=== PATIENT | male | born 1945 | race Caucasian/White ===

== ENCOUNTER 2025-04-02 10:13 | Emergency (ER) | payer OTHER, SELFPAY ==
--- OUTSIDE RECORDS SUMMARY | 2025-02-10 09:35 | XMS_ITS | Encounter Summary ---
Author Organization [employer] Address [address] [place] [address] Care Team Providers Care Emergency Room Nurse Name Role Phone Christopher Drake MD Unavailable + Jessica Huston MD Primary Care Provider [phone] Encounter Details Date Type Department Care Team (Late st Contact Info) Description 02/10/2025 9:35 AM CDT Lab [facility] [address] [place] [address] Dx: Medication monitoring encounter Social History Tobacco Use Types Packs/Day Years Used Date Smoking Tobacco: Former Cigarettes 1 20 1 08/20/1961 - 06/19/1982 Smokeless Tobacco: Never Alcohol Use Standard Drinks/Week Comments Yes 7 (1 standard drink = 0.6 oz pur e alcohol) glass of wine daily B1300 Health Literacy Answer Date Recor ded How often do you need to hav e someone help you when you read instructions, pamphlets, or other written material from your doctor or pharmacy? Never 12/01/2024 [facility] Utilities Answer Date Recorded In the past 12 months has [facility] electric, gas, oil, or water company threatened to shut off services in your home? No 12/01/2024 Humiliation, Afraid, Rape, and Kick questionnair e Answer Date Recorded Within the last year, have y ou been afraid of your partner or ex-partner? No 12/01/2024 Within the last year, have y ou been humiliated or emotionally abused in other ways by your partner or ex-partner? No Within the last year, have y ou been kicked, hit, slapped, or otherwise physically hurt by your partner or ex-partner? No 12/01/2024 Within the last year, have y ou been raped or forced to have any kind of sexual activity by your partner or ex-partner? No 12/01/2024 Social Connection and Isolation Panel [NHANES] A nswer Date Recorded In a typical week, how many times do you talk on the phone with family, friends, or neighbors? Once a week 12/02/19 How often do you get togethe r with friends or relatives? Twice a week 12/01/2024 How often do you attend chur ch or nondenominational services? 1 to 4 times per year 12/01/2024 Do you belong to any clubs o r organizations such as muslim groups, unions, fraternal or athletic groups, or school groups? No 12/01/2024 How often do you attend meet ings of the clubs or organizations you belong to? Never 12/01/2024 Are you , , di vorced, , never , or living with a partner? 12/01/2024 AUDIT-C Answer Date Recorded Q1: How often do you have a drink containing alcohol? 4 or more times a week 12/01/2024 Q2: How many drinks containi ng alcohol do you have on a typical day when you are drinking? 1 or 2 Q3: How often do you have si x or more drinks on one occasion? Never 12/01/2024 Overall Financial Resource Strain (CARDIA) Answe r Date Recorded How hard is it for you to pa y for the very basics like food, housing, medical care, and heating? Not hard at all 12/01/2024 [facility] [place] of Occupat ional Health - Occupational Stress Questionnaire Answer Date Recorded Do you feel stress - tense, restless, nervous, or anxious, or unable to sleep at night because your mind is troubled all the time - these days? Only a little 12/01/2024 Exercise Vital Sign Answer Date Recorde d On average, how many days pe r week do you engage in moderate to strenuous exercise (like a brisk walk)? 2 days 12/01/2024 On average, how many minutes do you engage in exercise at this level? 10 min 12/01/2024 Hunger Vital Sign Answer Date Recorded Within the past 12 months, y ou worried that your food would run out before you got the money to buy more. Never true 12/02/19 25 Within the past 12 months, t he food you bought just didn't last and you didn't have money to get more. Never true 12/01/2024 PRAPARE - Transportation Answer Date Re corded In the past 12 months, has l ack of transportation kept you from medical appointments or from getting medications? No 09/30 In the past 12 months, has l ack of transportation kept you from meetings, work, or from getting things needed for daily living? No 10/14/2021 Housing Stability Vital Sign Answer Bipin e Recorded In the last 12 months, was t here a time when you were not able to pay the mortgage or rent on time? No 12/01/2024 In the past 12 months, how m any times have you moved where you were living? 0 12/01/2024 At any time in the past 12 m [facility], were you homeless or living in a custodial (including now)? No 12/01/2024 Housing Stability Answer Date Recorded In the last 12 months, was t here a time when you were not able to pay the mortgage or rent on time? No 12/01/2024 Number of Places Lived in the Last Year Not on f ile 12/01/2024 Number of Places Lived in the Last Year (Outpati ent) Not on file 12/01/2024 Number of Places Lived in the Last Year (Inpatie nt) Not on file 12/01/2024 Unstable Housing in the Last Year Not on file 12/01/2024 Depression (PHQ-9) Answer Date Recorded Last PHQ-9 Score Not on file 12/01/2024 Thoughts of self harm Not at all 12/01/2024 Pediatric Housing Stability Answer Date Recorded At any time in the past 12 m [facility], were you homeless or living in a custodial (including now)? No 12/01/2024 In the past 12 months, how m any times have you moved where you were living? 0 12/01/2024 Housing Condition Worry Not on file 12/02/19 Intimate Partner Violence Answer Date R ecorded Are you in a relationship wh ere you are physically hurt, threatened and/or made to feel afraid? No 12/01/2024 Transportation Needs Answer Date Record ed In the past 12 months, has l ack of transportation kept you from medical appointments, meetings, work, or from getting medicines or things needed for daily living? No 12/01/2024 Caregiver Education and Work Answer Bipin e Recorded High School Degree Not on file 12/01/2024 How often do you need to hav e someone help you when you read instructions, pamphlets, or other written material from your doctor or pharmacy? 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 Answer Date of Assessment Author No 12/01/2024 9:09 AM Haile [email or web address] * Are you blind or do you have serious difficulty seeing, even when wearing glasses? Answer Date of Assessment Author No 12/01/2024 9:09 AM Haile [email or web address] * Do you have serious difficulty walking or climbing stairs? Answer Date of Assessment Author No 12/01/2024 9:09 AM Haile [email or web address] * Do you have difficulty dressing or bathing? Answer Date of Assessment Author No 12/01/2024 9:09 AM Haile [email or web address] * Do you have difficulty doing errands alone such as visiting a doctor's office or shopping because of a physical, mental, or emotional condition? Answer Date of Assessment Author No 12/01/2024 9:09 AM Haile [email or web address] documented as of this encounter Mental Status * Do you have trouble concentrating, remembering, or making decisions because of a physical, mental, or emotional condition? Answer Entry Date Author No 12/01/2024 9:09 AM Haile [email or web address] documented in this encounter Plan of Treatment Upcoming Encounters Date Type Department Care Team (Late st Contact Info) Description 06/02/2025 9:05 AM CORN COOKER Lab [facility] [address] [facility] [place] [address] Subj: Appointment Scheduled 06/04/2025 10:05 AM CORN COOKER Office Visit [facility] Family Medicine [address] [place] [address] Jessica Huston MD [address] [facility] [phone] Subj: Appointment Scheduled 06/10/2025 9:20 AM CORN COOKER Office Visit [facility] Rheumatology (a service of [facility]) [address] [place], [place] [id number] Theo Salinas MBBS [address] [phone] Victor Manuel Herrera DO [address] [place] [phone] Subj: Appointment Scheduled documented as of this encounter Procedures Procedure Name Priority Date/Time Associated Diagnosis Comments COMPLETE BLOOD COUNT AND DIFFERENTIAL Routine 02/10/2025 9:17 AM CDT Medication monitoring encounter Rheumatoid arthritis involving multiple sites with positive rheumatoid factor (HCC) CREATININE Routine 02/10/2025 9:17 AM CDT Medication monitoring encounter Rheumatoid arthritis involving multiple sites with positive rheumatoid factor (HCC) LIVER FUNCTION PANEL Routine 02/10/2025 9:17 AM CDT Medication monitoring encounter Rheumatoid arthritis involving multiple sites with positive rheumatoid factor (HCC) COMPLETE BLOOD COUNT AND DIFFERENTIAL Routine 02/10/2025 9:17 AM CDT Medication monitoring encounter Rheumatoid arthritis involving multiple sites with positive rheumatoid factor (HCC) documented in this encounter Results * (ABNORMAL) COMPLETE BLOOD COUNT AND DIFFERENTIAL (02/10/2025 9:17 AM CDT) Pathologist [facility] WBC Count, Corrected 6.1 3.9 - 11.9 10(3)/uL 02/10/2025 9:22 AM T [facility] RBC Count 4.84 4.08 - 5.79 10(6)/uL 02/10/2025 9:22 AM T [facility] Hemoglobin 14.7 13.1 - 17.1 g/dL 02/10/2025 9:22 AM T [facility] Hematocrit 44.6 38.7 - 51.4 % 02/10/2025 9:22 AM T [facility] MCV 92.2 82.9 - 100.6 fL 02/10/2025 9:22 AM T [facility] MCH 30.5 27.6 - 33.2 pg 02/10/2025 9:22 AM T [facility] MCHC 33.0 32.0 - 36.0 g/dL 02/10/2025 9:22 AM [facility] RDW 15.2 10.0 - 16.2 % 02/10/2025 9:22 AM T [facility] Platelets 137(L) 179 - 450 10(3)/uL 02/10/2025 9:22 AM T [facility] MPV 8.0 7.4 - 10.4 fL 02/10/2025 9:22 AM T [facility] % Neutrophils 70.4 43.0 - 80.0 % 02/10/2025 9:22 AM T [facility] % Lymphocytes 17.8 16.0 - 49.0 % 02/10/2025 9:22 AM T [facility] % Monocytes 8.4 0.0 - 10.0 % 02/10/2025 9:22 AM T [facility] % Eosinophils 2.6 0.0 - 7.0 % 02/10/2025 9:22 AM T [facility] % Basophils 0.8 0.0 - 2.0 % 02/10/2025 9:22 AM CDT [facility] Abs Neutrophils 4.3 1.6 - 8.1 10(3)/uL 02/10/2025 9:22 AM CDT [facility] Abs Lymphocytes 1.1 0.9 - 3.5 10(3)/uL 02/10/2025 9:22 AM CDT [facility] Abs Monocytes 0.5 0.0 - 1.1 10(3)/uL 02/10/2025 9:22 AM CDT [facility] Abs Eosinophils 0.2 0.0 - 0.8 10(3)/uL 02/10/2025 9:22 AM CDT [facility] Abs Basophils 0.0 0.0 - 0.2 10(3)/uL 02/10/2025 9:22 AM CDT [facility] Blood VENOUS BLOOD / Unknown Venipuncture / Unknown 02/10/2025 9:17 AM CDT 02/10/2025 9:17 AM CDT us Victor Manuel Herrera DO LAB HEMATOLOGY ORDERABLE S Final Result [facility] [address] [place] [address], * LIVER FUNCTION PANEL (02/10/2025 9:17 AM CDT) Albumin 3.9 3.4 - 4.8 g/dL 02/10/2025 11:55 AM CDT [facility] Total Protein 6.5 6.0 - 8.0 g/dL 02/10/2025 11:55 AM CDT [facility] Globulin 2.6 2.0 - 3.5 g/dL 02/10/2025 11:55 AM CDT [facility] Albumin/Globulin Ratio 1.5 1.0 - 2.0 02/10/2025 11:55 AM T [facility] Aspartate Aminotransferase (AST) 29 5 - 41 U/L 02/10/2025 11:55 AM CDT [facility] Alanine Aminotransferase (ALT) 23 8 - 45 U/L 02/10/2025 11:55 AM CDT [facility] Alkaline Phosphatase 61 50 - 136 U/L 02/10/2025 11:55 AM CDT [facility] Bilirubin, Total 0.4 0.2 - 1.2 mg/dL 02/10/2025 11:55 AM CDT [facility] Bilirubin, Indirect 0.2 0.0 - 0.7 mg/dL 02/10/2025 11:55 AM CDT [facility] Bilirubin, Direct 0.2 0.0 - 0.5 mg/dL 02/10/2025 11:55 AM CDT [facility] Blood VENOUS BLOOD / Unknown Venipuncture / Unknown 02/10/2025 9:17 AM CDT 02/10/2025 9:17 AM CDT Victor Manuel Herrera DO LAB CHEMISTRY ORDERABLES Final Result [facility] [address] [place] [address], * CREATININE (02/10/2025 9:17 AM CDT) Creatinine 1.03 0.72 - 1.25 mg/dL 02/10/2025 11:55 AM CDT [facility] eGFR >60 >=60 mL/min/1.7 3m(2) 02/10/2025 11:55 AM CDT [facility] Comment:Calculation based on the Chronic Kidney Disease Epidemiology Collaboration (CKD-EPI) equation refit without adjustment for race. eCrCl (Rx) - Adults 75.3 mL/min 02/10/2025 11:55 AM CDT [facility] Blood VENOUS BLOOD / Unknown Venipuncture / Unknown 02/10/2025 9:17 AM CDT 02/10/2025 9:17 AM CDT us Victor Manuel Herrera DO LAB CHEMISTRY ORDERABLES Final Result [facility] [address] [place] [address], documented in this encounter Visit Diagnoses Diagnosis Medication monitoring encounter Encounter for therapeutic drug monitoring Rheumatoid arthritis involving multiple sites with positive rheumatoid factor (HCC) documented in this encounter Care Teams Emergency Room Nurse Relationship Specialty Start Date End Date Jessica Huston MD [address] [place] [phone] PCP - General Family Medicine 12/01/24 Christopher Drake MD [address] [facility] [address] [place] [phone] Gastroenterology 07/10/21 documented as of this encounter Additional Source Comments PLEASE NOTE: Replies to this message will not be received.[facility] and [facility]
[2025-04-02] VITALS (15 sets, daily range): BP systolic 137–150; BP diastolic 76–95; PULSE 70–90; RESP 8–34; TEMP 36.2; O2SAT 97–100; BMI 28.7
--- NOTE | 2025-04-02 11:02 | CRLHL7_ITS ---
For Patients: As a result of the Century Cures Act, medical imaging exams and procedure reports are released immediately into your electronic medical record. You may view this report before your referring provider. If you have questions, please contact your health care provider. Indication: GI BLEED, BLOOD IN STOOL Technique: CTA abdomen/pelvis with IV contrast, utilizing 98 mL Isovue 370 Comparison: None Findings: Vasculature: No aneurysm, pseudoaneurysm, acute arterial occlusion, or rate limiting stenosis. Small focus of active arterial bleeding associated with a diverticulum of the proximal descending colon (series number 4, image 123) with some pooling of the blood on the portal venous phase (series number 10, image [id number]). Lower thorax: No acute abnormality. Large hiatal hernia containing the majority of the stomach. Abdomen/pelvis: The liver is unremarkable. Status post cholecystectomy. No biliary ductal dilatation. The spleen, pancreas, and adrenal glands are unremarkable. The kidneys are normal in size and perfused in a normal fashion. Regions of minimal cortical scarring bilaterally. Subcentimeter hypoattenuating lesions in the kidneys, too small to characterize, but likely benign. No renal calculi or hydroureteronephrosis. The decompressed bladder is unremarkable. Mild prostatomegaly. Seminal vesicles and image external genitalia are unremarkable. Large hiatal hernia. No evidence of bowel obstruction or inflammation. Active diverticular hemorrhage in the descending colon as detailed above. Extensive colonic diverticulosis. No intra-abdominal or intrapelvic free air, free fluid, or abscess. No abdominopelvic lymphadenopathy. Soft tissue/musculoskeletal: Small fat containing umbilical and bilateral inguinal hernias. No acute fracture or malalignment. Multilevel degenerative changes throughout the spine. Sclerotic lesion in the L3 vertebral body with overall benign features. Impression: 1. Small focus of active arterial bleeding associated with a diverticulum in the proximal descending colon. 2. Additional incidental findings as detailed above. Findings were discussed with Dr. Coppola at approximately 12:22 p.m. on 04/02/2025. Please note that all CT scans at this facility use dose modulation, iterative reconstruction, and/or weight-based dosing when appropriate to reduce radiation dose to as low as reasonably achievable. Dictated by Imtiaz George MD @ 04/02/2025 12:24:15 PM (Electronically Signed)
[2025-04-02 11:17] LABS: Hematocrit* 43.6 % (37.0-53.0); Hemoglobin* 14.5 gm/dL (13.5-17.5); Immature Granulocytes Abs Auto 0.01 K/uL (0.00-0.30); Immature Granulocytes Pct Auto 0.2 %; Lymphocytes Absolute Auto 1.00 K/uL (0.90-2.90); Mean Corpuscular HGB Conc 33 gm/dL (32-36); Mean Corpuscular Hemoglobin 31 pg (26-34); Mean Corpuscular Volume 92 fL (80-100); RDW Coefficient of Variation % 15.3 % (11.5-15.5); Red Blood Count* 4.73 m/uL (4.30-5.90); White Blood Count* 5.74 K/uL (4.50-11.00)
--- NOTE | 2025-04-02 11:19 | PC.NURSE ---
patient had bloody stool the size of a quarter in a hat. Shown to MD. MD did not want to do anything with the stool. This was thrown away. Patient denies dizziness
[2025-04-02 11:20] LABS: Slide Review Reflex No
--- OUTSIDE RECORDS SUMMARY | 2025-04-02 11:26 | XMS_ITS | Encounter Summary ---
Author Organization [facility] [employer] Address [address] [place] [address] Care Team Providers Care Internal Combustion Engineer Name Role Phone Christopher Drake MD Unavailable + Jessica Huston MD Primary Care Provider [phone] Reason for Visit * Reason Comments Refill Request Encounter Details Date Type Department Care Team (Late st Contact Info) Description 03/16/2025 Refill [facility] Rheumatology (a service of [facility]) [address] [place] [address] Victor Manuel Herrera DO [address] [facility] [address] [place] [phone] Dx: Rheumatoid arthritis involving multiple sites with positive rheumatoid factor (HCC) (Primary Dx) Social History Tobacco Use Types Packs/Day Years [...] from your doctor or pharmacy? Never 12/01/2024 [facility] Utilities Answer Date Recorded In the past 12 months has e electric, gas, oil, or water company threatened [...] week 12/01/2024 How often do you attend [facility] or restorationism services? 1 to 4 times per year 12/01/2024 Do you belong to any clubs o r organizations such as hindu groups, unions, fraternal or athletic groups, or [...] and heating? Not hard at all 12/01/2024 [facility] [place] of Occupat ional Health - Occupational Stress [...] any time in the past 12 m [facility], were you homeless or living in a mcc (including now)? No 12/01/2024 Housing Stability Answer [...] any time in the past 12 m [facility], were you homeless or living in a mcc (including now)? No 12/01/2024 In the past 12 months, how m any times have you moved where you were living? 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 Not on britany [...] Entry Date Author No 12/01/2024 9:09 AM CDT Elie warren [email or web address] documented in this encounter Miscellaneous Notes * Telephone Encounter - Nohemy Tai LPN - 03/16/2025 1:29 PM CDT DMARDS Medication: methotrexate 8 tabs weekly Authorizing Provider Victor Manuel Herrera, Last Refill/Ordering Date: Quantity: Number of Refills: 6-5-25 96 0 Last Office Visit with Provider 12/04/2024 Last labs WBC Count, Corrected Date Value Ref Range Status 02/10/2025 6.1 3.9 - 11.9 10(3)/uL Final Hemoglobin Date Value Ref Range Status 02/10/2025 14.7 13.1 - 17.1 g/dL Final Platelets Date Value Ref Range Status 02/10/2025 137 (L) 179 - 450 10(3)/uL Final Abs Neutrophils Date Value Ref Range Status 02/10/2025 4.3 1.6 - 8.1 10(3)/uL Final % Neutrophils Date Value Ref Range Status 02/10/2025 70.4 43.0 - 80.0 % Final Aspartate Aminotransferase (AST) Date Value Ref Range Status 02/10/2025 29 5 - 41 U/L Final Alanine Aminotransferase (ALT) Date Value Ref Range Status 02/10/2025 23 8 - 45 U/L Final Creatinine Date Value Ref Range Status 02/10/2025 1.03 0.72 - 1.25 mg/dL Final Albumin Date Value Ref Range Status 02/10/2025 3.9 3.4 - 4.8 g/dL Final Future Office Visit with Provider 06/10/2025 Quantity Approved/Denied 96+0 [facility]acy: [facility] Init[facility] Refill Protocol: Last order of INITIATE REFILL PROTOCOL was found on 12/08/2024 from [facility] on 12/08/2024 documented in this encounter Plan of Treatment Upcoming Encounters Date Type Department Care Team (Late st Contact Info) Description 06/02/2025 9:05 AM [facility] [address], [place] [address] Subj: Appointment Scheduled 06/04/2025 10:05 AM APPRENTICE PATTERN MAKER Office Visit [facility] Family Medicine [address] [place] [phone] Jessica Huston MD [address] [place] [phone] Subj: Appointment Scheduled 06/10/2025 9:20 AM APPRENTICE PATTERN MAKER Office Visit [facility] Rheumatology (a service of [facility]) [address] [place] [address] Theo Salinas MBBS [address] [phone] Victor Manuel Herrera DO [address] [phone] Subj: Appointment Scheduled documented as of this encounter Visit Diagnoses Diagnosis Rheumatoid arthritis involving multiple sites with positive rheumatoid factor (HCC)- Primary documented in this encounter Care Teams Internal Combustion Engineer Relationship Specialty Start Date End Date Jessica Huston MD [address] [place] [phone] PCP - General Family Medicine 12/01/24 Christopher Drake MD [address] [place] [phone] Gastroenterology 07/10/21 documented as of this encounter Additional Source Comments PLEASE NOTE: Replies to this message will not be received.[facility]
--- OUTSIDE RECORDS SUMMARY | 2025-04-02 11:26 | XMS_ITS | Encounter Summary ---
Author Organization [facility] [employer] [facility] Address [address] [place] [address] Care Team Providers Care Grain Unloader Machine Name Role Phone Christopher Drake MD Unavailable + Jessica Huston MD Primary Care Provider Encounter Details Date Type Department Care Team (Late st Contact Info) Description 02/15/2025 Results Follow-Up [facility] [address] [place], [place] [phone] Victor Manuel Herrera, [address] [facility] [address] [place] [address] CREATININE, LIVER FUNCTION PANEL, COMPLETE BLOOD COUNT AND DIFFERENTIAL Social History Tobacco Use Types Packs/Day Years [...] from your doctor or pharmacy? Never 12/01/2024 [facility] Utilities Answer Date Recorded In the past 12 months has th e electric, gas, oil, or water company [...] often do you attend chur ch or scientology services? 1 to 4 times per year 12/01/2024 Do you belong to any clubs o r organizations such as scientology groups, unions, fraternal or athletic groups, or [...] and heating? Not hard at all 12/01/2024 [facility] [place] [facility] - Occupational Stress [...] any time in the past 12 m [facility], were you homeless or living in a senior care (including now)? No 12/01/2024 Housing Stability Answer [...] any time in the past 12 m [facility], were you homeless or living in a senior care (including now)? 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 Answer Date of Assessment Author No 12/01/2024 9:09 AM DEBBIE warren [email or web address] * Are you blind or do you have serious difficulty seeing, even when wearing glasses? Answer Date of Assessment Author No 12/01/2024 9:09 AM DEBBIE warren [email or web address] * Do you have serious difficulty walking or climbing stairs? Answer Date of Assessment Author No 12/01/2024 9:09 AM DEBBIE warren [email or web address] * Do you have difficulty dressing or bathing? Answer Date of Assessment Author No 12/01/2024 9:09 AM DEBBIE warren [email or web address] * Do you have difficulty doing errands alone such as visiting a doctor's office or shopping because of a physical, mental, or emotional condition? Answer Date of Assessment Author No 12/01/2024 9:09 AM DEBBIE warren [email or web address] documented as of this encounter Mental Status * Do you have trouble concentrating, remembering, or making decisions because of a physical, mental, or emotional condition? Answer Entry Date Author No 12/01/2024 9:09 AM CDT Elie warren, [email or web address] documented in this encounter Plan of Treatment Upcoming Encounters Date Type Department Care Team (Late st Contact Info) Description 06/02/2025 9:05 AM FNPS Lab [facility] [address] [place] [address], [place] [address] Subj: Appointment Scheduled 06/04/2025 10:05 AM FNPS Office Visit [facility] Family Medicine [address] [place] [phone] Jessica Huston MD [address] [place] [phone] Subj: Appointment Scheduled 06/10/2025 9:20 AM FNPS Office Visit [facility] Rheumatology (a service of [facility]) [address] [place] [address] Theo Salinas MBBS [address] [phone] Victor Manuel Herrera DO [address] [phone] Subj: Appointment Scheduled documented as of this encounter Visit Diagnoses Not on filedocumented in this encounter Care Teams Grain Unloader Machine Relationship Specialty Start Date End Date Jessica Huston MD [address] [place] [phone] PCP - General Family Medicine 12/01/24 Christopher Drake MD [address] [place] [phone] Gastroenterology 07/10/21 documented as of this encounter Additional Source Comments PLEASE NOTE: Replies to this message will not be received.[facility]
--- OUTSIDE RECORDS SUMMARY | 2025-04-02 11:26 | XMS_ITS | Encounter Summary ---
Author Organization [facility] Address [address] [place] [address] Care Team Providers Care Pallet Sorter Name Role Phone Rodrigo Boswell MD Primary Care Provider [phone] Provider, No Primary Primary Care Provider Unava Santiago Avelar MD Primary Care Provider Unavail able Christopher Drake MD Unavailable + Unknown, Provider Primary Care Provider Unavaila Jessica Clements MD Primary Care Provider Encounter Details Date Type Department Care Team (Late st Contact Info) Description 03/31/2013 Historical Conversion [facility] Family Medicine [address] [place] [id number] [place] [address] [place] [phone] Social History Tobacco Use Types Packs/Day Years Used Date Smoking Tobacco: Never Assessed Sex and Gender Information Value Date Recorded Sex Assigned at Not on file Legal Sex Male 2:17 PM ASSISTANT COUNSEL Gender Identity Not on file Sexual Orientation Not on file documented as of this encounter Plan of Treatment Upcoming Encounters Date Type Department Care Team (Late Contact Info) Description 06/02/2025 9:05 AM ASSISTANT COUNSEL Lab [facility] Lab [address] [place] [phone] Subj: Appointment Scheduled 06/04/2025 10:05 AM ASSISTANT COUNSEL Office Visit [facility] Family Medicine [address] [place] [address] Jessica Huston MD [address] [facility] [phone] Subj: Appointment Scheduled 06/10/2025 9:20 AM ASSISTANT COUNSEL Office Visit [facility] Rheumatology (a service of [facility]) [address] [facility] [place] [address] Theo Salinas MBBS [address] [facility] [address] [place] [address], [place] [address] Victor Manuel Herrera DO [address] [place] [phone] Subj: Appointment Scheduled documented as of this encounter Visit Diagnoses Not on filedocumented in this encounter Care Teams Pallet Sorter Relationship Specialty Start Date End Date Rodrigo Bosewll MD [address] [place] [phone] PCP - General Family Medicine 06/19/16 09/17/17 Provider, [place] [address] PCP - General 09/18/17 10/17/17 [place] [address] PCP - General Family Medicine 10/18/17 10/05/24 Unknown, [place] [address] PCP - General 10/06/24 11/30/24 Jessica Huston MD [address] [place] [phone] PCP - General Family Medicine 12/01/24 Christopher Drake MD [address] [phone] Gastroenterology 07/10/21 documented as of this encounter Additional Source Comments PLEASE NOTE: Replies to this message will not be received.[facility]
--- OUTSIDE RECORDS SUMMARY | 2025-04-02 11:26 | XMS_ITS | Referral Summary ---
Author Organization [facility] Address [address] [place] [address] Care Team Providers Care Solar Sales Estimator Name Role Phone Christopher Drake MD Unavailable + Jessica Huston MD Primary Care Provider [phone] Encounters Date Type Department Care Team Description 03/16/2025 Refill [facility] Rheumatology (a service of [facility]) [address] [place] [address] Victor Manuel Herrera, Dx: Rheumatoid arthritis involving multiple sites with positive rheumatoid factor (HCC) (Primary Dx) 02/15/2025 Results Follow-Up [facility] [address] [place] [address] Victor Manuel Herrera DO CREATININE, LIVER FUNCTION PANEL, COMPLETE BLOOD COUNT AND DIFFERENTIAL 02/10/2025 Travel 02/10/2025 9:35 AM CDT Lab [facility] [address] [place] [address] Dx: Medication monitoring encounter from Last 3 Months Allergies No known active allergies Medications cholecalciferol 1,000 unit oral tablet Take 2 Tablets (2,000 Units) by mouth in the morning. Active Folic Acid 800 mcg oral Tablet Take 1 Tablet (800 mcg) by mouth in the morning. Active glucosamine/cho ndr virk A sod (GLUCOSAMINE-CH ONDROITIN) 750-600 mg oral Tablet Take 1 Tablet by mouth in the morning and 1 Tablet in the evening. Active amLODIPine (NORVASC) 2.5 mg oral TabletIndicatio ns:Essential hypertension Take 1 Tablet (2.5 mg) by mouth in the morning. 90 Tablet 1 12/02/19 25 025 Active betamethasone, augmented (DIPROLENE-AF) 0.05 % topical OintmentIndicat ions:Eczema, unspecified type Apply 1 Application to the affected area(s) 2 times daily as needed in the morning and early afternoon for rash. 45 g 5 12/02/19 25 Active triamcinolone acetonide (KENALOG) 0.1 % topical OintmentIndicat ions:Eczema, unspecified type Apply 1 Application to the affected area(s) in the morning and 1 Application in the evening. 80 g 1 12/02/19 25 Active methotrexate 2.5 mg oral TabletIndicatio ns:Rheumatoid arthritis involving multiple sites with positive rheumatoid factor (HCC) Take 8 Tablets (20 mg) by mouth every week. 96 Tablet 03/16/20 25 Active methotrexate 2.5 mg oral TabletIndicatio ns:Rheumatoid arthritis involving multiple sites with positive rheumatoid factor (HCC) Take 8 Tablets (20 mg) by mouth every week. 96 Tablet 12/05/19 25 025 Discontinued Active Problems Problem Noted Date Diagnosed Date Eczema 12/01/2024 Medication monitoring encounter 12/07/2022 Hx of adenomatous colonic polyps 12/07/2021 Overview (12/07/2021): October 2021 - 1 adenoma removed, repeat scope recommended in 2026 Hematochezia 07/07/2021 Primary osteoarthritis involving multiple joints 09/30/2018 Primary osteoarthritis of right knee 12/07/2017 Onychomycosis of toenail 05/31/2017 Bunion of great toe of right foot 05/31/2017 Bunion of great toe of left foot 05/31/2017 Rheumatoid arthritis involvi ng multiple sites with positive rheumatoid factor 07/18/2016 High risk medications (not anticoagulants) long- term use 07/18/2016 Deficiency anemia 07/20/2014 Lipoma 12/01/2011 Pain in joint, lower leg 12/01/2011 GERD (gastroesophageal reflux disease) Overview (08/30/2018): with esophagitis and hiatal hernia Essential hypertension Resolved Problems Problem Noted Date Diagnosed Date Resolved Date Cholecystitis, acute 03/03/2020 023 Immunizations Immunization Administration Dates Next Due Influenza Vac, IM, Quadrivalent 04/08/2015,04/13,03/31/2013 Influenza Vac, IM, Quadrival ent (aIIV4), Inactivated, Adjuvanted, Preserv Free (65+ Yrs) 06/05/2023,05/04/2022,04/18/2021 Influenza Vac, IM, Quadrival ent Preserv Free, (>6 months) 04/19/2020 Influenza Vac, IM, Quadrival ent, Preserv Free, Split Virus (Fluzone 65+) 05/02/2019,03/27/2018,04/17/2017,2015 Influenza Vac, IM, Trivalent,Inactivated, Subunit, Adjuvanted (Fluad) 04/29/2024 Pneumococcal Conj Vac, 13-va lent (Prevnar) 04/08/2015,12/08/2011 Pneumococcal Vac, 23-valent, IM-SQ (Pneumovax) 08/30/2018,12/08/2011 Respiratory Syncytial Virus Vaccine, IM (Arexvy) 05/22/2024 SARS-COV-2, IM (COVID-19)(Pfizer)(Skinner Label) 10/14/2021 SARS-CoV-2, IM (COVID-19)(Pfizer)(Purple Label) 03/22/2021,09/15/2020,08/25/2020 Td, Tetanus-Diphtheria(Prese rv Free,>7yrs)(Tenivac)(Decavac) 11/04/1996 Td, Tetanus/Diphtheria, IM, >7 Yrs 05/19/2016 Tdap Vaccine, IM, (Adacel)(Boostrix) 05/23/2016, 05/19/2016,05/08/2008 Varicella Vaccine, IM (Shingrix) 07/19/2023,04/01 Social History Tobacco Use Types Packs/Day Years [...] from your doctor or pharmacy? Never 12/01/2024 [facility] Utilities Answer Date Recorded In the past 12 months has th e School Yourself, gas, oil, or water company threatened to [...] 12/01/2024 How often do you attend chur or anabaptist services? 1 to 4 times per year 12/01/2024 Do you belong to any clubs o r organizations such as bahai groups, unions, fraternal or athletic groups, or [...] and heating? Not hard at all 12/01/2024 [facility] Occupational Stress Questionnaire Answer Date [...] any time in the past 12 m [facility], were you homeless or living in a assisted (including now)? No 12/01/2024 Housing Stability Answer [...] any time in the past 12 m [facility], were you homeless or living in a assisted (including now)? 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 Answer Date of Assessment Author No 12/01/2024 9:09 AM CDT Elie warren, [email or web address] * Are you blind or do you have serious difficulty seeing, even when wearing glasses? Answer Date of Assessment Author No 12/01/2024 9:09 AM CDT Welkrishnata kelvin, [email or web address] * Do you have serious difficulty walking or climbing stairs? Answer Date of Assessment Author No 12/01/2024 9:09 AM CDT Welcometa kelvin, [email or web address] * Do you have difficulty dressing or bathing? Answer Date of Assessment Author No 12/01/2024 9:09 AM CDT Welkrishnata kelvin, [email or web address] * Do you have difficulty doing errands alone such as visiting a doctor's office or shopping because of a physical, mental, or emotional condition? Answer Date of Assessment Author No 12/01/2024 9:09 AM CDT Elie warren [email or web address] Mental Status * Do you have trouble concentrating, remembering, or making decisions because of a physical, mental, or emotional condition? Answer Entry Date Author No 12/01/2024 9:09 AM DEBBIE warren [email or web address] Plan of Treatment Upcoming Encounters Date Type Department Care Team (Late st Contact Info) Description 06/02/2025 9:05 AM LUMBER TALLIER Lab [facility] [address] [place] [address] Subj: Appointment Scheduled 06/04/2025 10:05 AM LUMBER TALLIER Office Visit [facility] Family Medicine [address], [place] [address] Jessica Huston MD [address] [place] [phone] Subj: Appointment Scheduled 06/10/2025 9:20 AM LUMBER TALLIER Office Visit [facility] Rheumatology (a service of [facility]) [address] [place] [address] AkkarTheo Mccullough MBBS [address] [place] [address] Victor Manuel Herrera DO [address] [place] [phone] Subj: Appointment Scheduled Medical Devices Implanted Type Area Supervisor Kosher Dietary Service Device Identifier Shelf Expiration Date Model / Serial / Lot Cement Tobramycin 6197-9-001 - [id number] Implanted:Qty: 2 on 12/07/2017 by Chang Elias MD at [facility] Cement Right: Knee Magy 01/29/2019 6197-9-010 / N/A / [id number] Triathlon Cr Femur Size 6 Rig - [id number] Implanted:Qty: 1 on 12/07/2017 by Chang Elias MD at [facility] Hardware Right: Knee Magy 08/15/2022 5510-F-602 / N/A / [id number] Insert Tibial X3 Triathlon Cr #6 9mm - [id number] Implanted:Qty: 1 on 12/07/2017 by Chang Elias MD at [facility] Hardware Right: Knee Magy 08/14/2022 5530-G-609 / N/A / [id number] Patella Triathlon Asymmetric X3 35x10 - [id number] Implanted:Qty: 1 on 12/07/2017 by Chang Elias MD at [facility] Hardware Right: Knee Magy 10/19/2022 5551-G-350 / N/A / [id number] Implant Ts Tria Baseplate Size - [id number] Implanted:Qty: 1 on 12/07/2017 by Chang Elias MD at [facility] Plate Right: Knee Magy 11/05/2022 5521-B-600 / N/A / [id number] Procedures Procedure Name Priority Date/Time Associated Diagnosis [...] multiple sites with positive rheumatoid factor (HCC) LIPID PANEL Routine 12/01/2024 10:25 AM CDT Screening for lipid disorders COLONOSCOPY Routine 11/21/2021 9:24 AM CDT HEPATITIS C AB Routine 07/18/2016 11:00 AM LUMBER TALLIER Rheumatoid arthritis involving multiple sites with positive rheumatoid factor (HCC) BLOOD, OCCULT, BY FECAL HEMOGLOBIN IMMUNOASSAY 07/23/2014 12:00 AM LUMBER TALLIER from Last 3 Months or Most Recently Relevant to Health Maintenance Results * (ABNORMAL) COMPLETE BLOOD COUNT AND DIFFERENTIAL (02/10/2025 9:17 AM CDT) [facility] WBC Count, Corrected 6.1 3.9 - 11.9 10(3)/uL 02/10/2025 9:22 AM CDT [facility] RBC Count 4.84 4.08 - 5.79 10(6)/uL 02/10/2025 9:22 AM CDT [facility] Hemoglobin 14.7 13.1 - 17.1 g/dL 02/10/2025 9:22 AM CDT [facility] Hematocrit 44.6 38.7 - 51.4 % 02/10/2025 9:22 AM CDT [facility] MCV 92.2 82.9 - 100.6 fL 02/10/2025 9:22 AM CDT [facility] MCH 30.5 27.6 - 33.2 pg 02/10/2025 9:22 AM T [facility] MCHC 33.0 32.0 - 36.0 g/dL 02/10/2025 9:22 AM T [facility] RDW 15.2 10.0 - 16.2 % 02/10/2025 9:22 AM T [facility] Platelets 137(L) 179 - 450 10(3)/uL 02/10/2025 9:22 AM T [facility] MPV 8.0 7.4 - 10.4 fL 02/10/2025 9:22 AM T [facility] % Neutrophils 70.4 43.0 - 80.0 % 02/10/2025 9:22 AM T [facility] % Lymphocytes 17.8 16.0 - 49.0 % 02/10/2025 9:22 AM T [facility] % Monocytes 8.4 0.0 - 10.0 % 02/10/2025 9:22 AM T [facility] % Eosinophils 2.6 0.0 - 7.0 % 02/10/2025 9:22 AM T [facility] % Basophils 0.8 0.0 - 2.0 % 02/10/2025 9:22 AM T [facility] Abs Neutrophils 4.3 1.6 - 8.1 10(3)/uL 02/10/2025 9:22 AM CDT [facility] Abs Lymphocytes 1.1 0.9 - 3.5 10(3)/uL 02/10/2025 9:22 AM CDT [facility] Abs Monocytes 0.5 0.0 - 1.1 10(3)/uL 02/10/2025 9:22 AM CDT [facility] Abs Eosinophils 0.2 0.0 - 0.8 10(3)/uL 02/10/2025 9:22 AM CDT [facility] Abs Basophils 0.0 0.0 - 0.2 10(3)/uL 02/10/2025 9:22 AM CDT [facility] Blood VENOUS BLOOD / Unknown Venipuncture / Unknown 02/10/2025 9:17 AM CDT 02/10/2025 9:17 AM CDT Victor Manuel Herrera DO LAB HEMATOLOGY ORDERABLE S Final Result [facility] [address] [place] [address], [place] [phone] * CREATININE (02/10/2025 9:17 AM CDT) Creatinine 1.03 0.72 - 1.25 mg/dL 02/10/2025 11:55 AM CDT [facility] eGFR >60 >=60 mL/min/1.7 3m(2) 02/10/2025 11:55 AM CDT [facility] Comment:Calculation based on the Chronic Kidney Disease Epidemiology Collaboration (CKD-EPI) equation refit without adjustment for race. eCrCl (Rx) - Adults 75.3 mL/min 02/10/2025 11:55 AM CDT [facility] Blood VENOUS BLOOD / Unknown Venipuncture / Unknown 02/10/2025 9:17 AM CDT 02/10/2025 9:17 AM CDT Victor Manuel Herrera DO LAB CHEMISTRY ORDERABLES Final Result [facility] [address] [place] [address], [place] [phone] * LIVER FUNCTION PANEL (02/10/2025 9:17 AM CDT) Albumin 3.9 3.4 - 4.8 g/dL 02/10/2025 11:55 AM CDT [facility] Total Protein 6.5 6.0 - 8.0 g/dL 02/10/2025 11:55 AM CDT [facility] Globulin 2.6 2.0 - 3.5 g/dL 02/10/2025 11:55 AM T [facility] Albumin/Globulin Ratio 1.5 1.0 - 2.0 02/10/2025 11:55 AM [facility] Aspartate Aminotransferase (AST) 29 5 - 41 U/L 02/10/2025 11:55 AM [facility] Alanine Aminotransferase (ALT) 23 8 - 45 U/L 02/10/2025 11:55 AM T [facility] Alkaline Phosphatase 61 50 - 136 U/L 02/10/2025 11:55 AM T [facility] Bilirubin, Total 0.4 0.2 - 1.2 mg/dL 02/10/2025 11:55 AM T [facility] Bilirubin, Indirect 0.2 0.0 - 0.7 mg/dL 02/10/2025 11:55 AM [facility] Bilirubin, Direct 0.2 0.0 - 0.5 mg/dL 02/10/2025 11:55 AM [facility] Blood VENOUS BLOOD / Unknown Venipuncture / Unknown 02/10/2025 9:17 AM CDT 02/10/2025 9:17 AM CDT us Victor Manuel Herrera DO LAB CHEMISTRY ORDERABLES Final Result [facility] [address] [place] [address], * LIPID PANEL (12/01/2024 10:25 AM CDT) Cholesterol 171 <200 mg/dL 12/01/2024 12:25 PM T [facility] Comment: ATP III Guidelines(Cholesterol, Total) Optimal: <200 mg/dL Borderline High: 200-239 mg/dL High: >239 mg/dL Triglycerides 102 30 - 150 mg/dL 12/01/2024 12:25 PM T [facility] Cholesterol, LDL (Calculated) 101 0 - 159 mg/dL 12/01/2024 12:25 PM CDT [facility] Cholesterol, HDL 50 >40 mg/dL 12/02/19 25 12:25 PM CDT [facility] Cholesterol, vLDL 20 mg/dL 025 12:25 PM CDT [facility] Fasting Status N/A 12/01/2024 12:25 PM CDT [facility] Blood VENOUS BLOOD / Unknown Venipuncture / Unknown 12/01/2024 10:25 AM CDT 12/01/2024 10:25 AM CDT us Jessica Huston MD LAB CHEMISTRY ORDERABLES Fi nal Result [facility] [address] [place] [address], * COLONOSCOPY (11/21/2021 9:24 AM CDT) 11/21/2021 9:24 AM CDT Narrative [facility] ENDO - 11/21/2021 10:47 AM CDT [facility] Patient Name: Acosta Cruz Procedure Date: 11/21/2021 9:24 AM Date of : 1945 Admit Type: Outpatient Age: 75 Room: [facility] Gender: Male Note Status: Finalized Attending MD: Isha Barrios MD Procedure: Colonoscopy Indications: Screening for colorectal malignant neoplasm Providers: Isha Barrios MD Referring Provider: Christopher Drake MD (Referring MD) Medicines: Midazolam 5 mg IV, Fentanyl 50 micrograms IV Complications: No immediate complications. Procedure: Pre-Anesthesia Assessment: - - Prior to the procedure, a History and Physical was performed, and patient medications, allergies and sensitivities were reviewed. The patient's tolerance of previous anesthesia was reviewed. - The risks and benefits of the procedure and the sedation options and risks were discussed with the patient. All questions were answered and informed consent was obtained. - After reviewing the risks and benefits, the patient was deemed in satisfactory condition to undergo the procedure. - Patient identification and proposed procedure were verified prior to the procedure by the physician, the nurse and the mold maintenance technician. The procedure was verified in the procedure room. After I obtained informed consent, the scope was passed under direct vision. Throughout the procedure, the patient's blood pressure, pulse, and oxygen saturations were monitored continuously. The [id number] was introduced through the anus and advanced to the cecum, identified by appendiceal orifice and ileocecal valve. The colonoscopy was performed without difficulty. The patient tolerated the procedure well. The quality of the bowel preparation was good. The ileocecal valve, appendiceal orifice, and rectum were photographed. Findings: The digital rectal exam findings include non-thrombosed internal hemorrhoids. Many small-mouthed diverticula were found in the sigmoid colon, descending colon, transverse colon, hepatic flexure, ascending colon and cecum. An 8 mm polyp was found in the hepatic flexure. The polyp was sessile. The polyp was removed with a cold snare. Resection and retrieval were complete. The pathology specimen was placed into Bottle Number 1. Internal hemorrhoids were found during retroflexion. The hemorrhoids were Grade I (internal hemorrhoids that do not prolapse). Moderate Sedation: Moderate (conscious) sedation was administered by the endoscopy nurse and supervised by the endoscopist. The patient's oxygen saturation, heart rate, blood pressure and response to care were monitored. Total physician intraservice time was 26 minutes. Impression: - Non-thrombosed internal hemorrhoids found on digital rectal exam. - Diverticulosis in the sigmoid colon, in the descending colon, in the transverse colon, at the hepatic flexure, in the ascending colon and in the cecum. - One 8 mm polyp at the hepatic flexure, removed with a cold snare. Resected and retrieved. - Internal hemorrhoids. Recommendation: - Repeat colonoscopy in 5 years for surveillance. - Patient has a contact number available for emergencies. The signs and symptoms of potential delayed complications were discussed with the patient. Return to normal activities tomorrow. Written discharge instructions were provided to the patient. - Discharge patient to home. Isha Barrios MD 11/21/2021 10:47:44 AM This report has been signed electronically. All medications administered and tests ordered during the procedure were at the direction of the provider performing the procedure. Unless otherwise noted, estimated blood loss was minimal, no specimens were obtained, and all proceduralists have been documented. Number of Addenda: 0 Note Initiated On: 11/21/2021 9:24 AM Christopher Drake MD GI PROCEDURES Fi nal Result [facility] * HEPATITIS C ANTIBODY (07/18/2016 11:00 AM LUMBER TALLIER) HEPATITIS C ANTIBODY NONREACTIVE NONR [facility] Comment: A NONREACTIVE RESULT INDICATES THE ABSENCE OF DETECTABLE LEVELS OF ANTIBODY TO HEPATITIS C VIRUS. AT PRESENT, THERE IS NO RECOGNIZED STANDARD FOR EVALUATING THE PRESENCE OR ABSENCE OF HEPATITIS C VIRUS ANTIBODIES INHUMAN BLOOD. THEREFORE, THIS RESULT DOES NOT PRECLUDE EXPOSURE TO OR INFECTION WITH HEPATITIS C VIRUS. Blood specimen (specimen) BLOOD SPECIMEN / Unknown 07/18/2016 11:00 AM LUMBER TALLIER 07/18/2016 11:03 AM LUMBER TALLIER Victor Manuel Herrera DO LAB SEROLOGY ORDERABLES Final Result Performing Organization Address [facility]/ZIP Co de Phone Number [facility] [address] [place] [address] * BLOOD, OCCULT, BY FECAL HEMOGLOBIN IMMUNOASSAY (07/23/2014 12:00 AM LUMBER TALLIER) FECAL OCCULT BLOOD NEGATIVE Negative [facility] 07/23/2014 07/20/2014 4:5 7 PM LUMBER TALLIER Rodrigo Boswell MD LAB BODY FLUIDS AND STOOLS ORD ERABLES Final Result Performing Organization Address [facility]/ZIP Co de Phone Number [facility] [address] [place] [address], from Last 3 Months or Most Recently Relevant to Health Maintenance Insurance [employer] [id number] * Guarantor: PATRICA MAHAJAN Account Type Relation to Patient Date of Phone Billing Address [facility] Other [address] [place] [phone] Advance Directives * Full Code (Latest Code Status on File) Date Activated Date Inactivated Comments 07/07/2021 4:58 AM 07/10/2021 2:54 PM * Full Code Date Activated Date Inactivated Comments 03/03/2020 5:53 AM 03/03/2020 10:14 PM Care Teams Solar Sales Estimator Relationship Specialty Start Date End Date Jessica Huston MD [address] [place] [phone] PCP - General Family Medicine 12/01/24 Christopher Drake MD [address] [facility] [address] [place] [phone] Gastroenterology 07/10/21 Additional Source Comments PLEASE NOTE: Replies to this message will not be received.[facility] and [facility]
--- OUTSIDE RECORDS SUMMARY | 2025-04-02 11:26 | XMS_ITS | Encounter Summary ---
Author Organization [facility] [employer] [facility] Address [address] [place] [address] Care Team Providers Care Community Support Specialist Name Role Phone Rodrigo Boswell MD Primary Care Provider Provider, No Primary Primary Care Provider Unava Santiago Avelar MD Primary Care Provider Unavail able Christopher Drake MD Unavailable + Unknown, Provider Primary Care Provider Unavaila Jessica Clements MD Primary Care Provider Encounter Details Date Type Department Care Team (Late st Contact Info) Description 07/20/2014 Historical Conversion [facility] Family Medicine [address] [place] [phone] [place] [address] [place] [phone] Social History Tobacco Use Types Packs/Day Years Used Date Smoking Tobacco: Never Assessed Sex and Gender Information Value Date Recorded Sex Assigned at Not on file Legal Sex Male 2:17 [address] DESIGNER Gender Identity Not on file Sexual Orientation Not on file documented as of this encounter Plan of Treatment Upcoming Encounters Date Type Department Care Team (Late Contact Info) Description 06/02/2025 9:[address] DESIGNER Lab [facility] [address] [place] [phone] Subj: Appointment Scheduled 06/04/2025 10:[address] DESIGNER Office Visit [facility] Family Medicine [address] [facility] [place] [address] Jessica Huston MD [address] [place] [phone] Subj: Appointment Scheduled 06/10/2025 9:[address] DESIGNER Office Visit [facility] Rheumatology (a service of [facility]) [address] [facility] [place] [address] Theo Salinas MBBS [address] [facility] [address] [place] [address], [place] [phone] Victor Manuel Herrera DO [address] [place] [address] Subj: Appointment Scheduled documented as of this encounter Visit Diagnoses Not on filedocumented in this encounter Care Teams Community Support Specialist Relationship Specialty Start Date End Date Rodrigo Boswell MD [address] [place] [phone] PCP - General Family Medicine 06/19/16 09/17/17 Provider, [place] [address] PCP - General 09/18/17 10/17/17 [place] [address] PCP - General Family Medicine 10/18/17 10/05/24 Unknown, [place] [address] PCP - General 10/06/24 11/30/24 Jessica Huston MD [address] [place] [phone] PCP - General Family Medicine 12/01/24 Christopher Drake MD [address] [phone] Gastroenterology 07/10/21 documented as of this encounter Additional Source Comments PLEASE NOTE: Replies to this message will not be received.[facility]
--- OUTSIDE RECORDS SUMMARY | 2025-04-02 11:26 | XMS_ITS | Encounter Summary ---
Author Organization [facility] Address [address] [place] [address] Care Team Providers Care Chief Psychology Name Role Phone Rodrigo Boswell MD Primary Care Provider [phone] Provider, No Primary Primary Care Provider Unava Santiago Avelar MD Primary Care Provider Unavail able Christopher Drake MD Unavailable + Unknown, Provider Primary Care Provider Unavaila Jessica Clements MD Primary Care Provider Encounter Details Date Type Department Care Team (Late st Contact Info) Description 04/13/2014 Historical Conversion [facility] Family Medicine [address] [place] [address] [place] [address] [place] [phone] Social History Tobacco Use Types Packs/Day Years Used Date Smoking Tobacco: Never Assessed Sex and Gender Information Value Date Recorded Sex Assigned at Not on file Legal Sex Male 2:17 PM SALVAGE DIVER Gender Identity Not on file Sexual Orientation Not on file documented as of this encounter Plan of Treatment Upcoming Encounters Date Type Department Care Team (Late Contact Info) Description 06/02/2025 9:05 AM SALVAGE DIVER Lab [facility] Lab [address] [place] [address] Subj: Appointment Scheduled 06/04/2025 10:05 AM SALVAGE DIVER Office Visit [facility] Family Medicine [address] [place] [address] Jessica Huston MD [address] [place] [phone] Subj: Appointment Scheduled 06/10/2025 9:20 AM SALVAGE DIVER Office Visit [facility] Rheumatology (a service of [facility]) [address] [facility] [place] [address] Theo Salinas MBBS 1900 [facility] [address] [place] [address], [place] [address] Victor Manuel Herrera DO [address] [place] [address] Subj: Appointment Scheduled documented as of this encounter Visit Diagnoses Not on filedocumented in this encounter Care Teams Chief Psychology Relationship Specialty Start Date End Date Rodrigo Boswell MD [address] [place] [phone] PCP - General Family Medicine 06/19/16 09/17/17 Provider, [place] [address] PCP - General 09/18/17 10/17/17 [place] [address] PCP - General Family Medicine 10/18/17 10/05/24 Unknown, [place] [address] PCP - General 10/06/24 11/30/24 Jessica Huston MD [address] [place] [phone] PCP - General Family Medicine 12/01/24 Christopher Drake MD [address] [phone] Gastroenterology 07/10/21 documented as of this encounter Additional Source Comments PLEASE NOTE: Replies to this message will not be received.[facility] and [facility]
--- OUTSIDE RECORDS SUMMARY | 2025-04-02 11:26 | XMS_ITS | Encounter Summary ---
Author Organization [facility] [facility] Address [address] [place] [address] Care Team Providers Care Head Bookkeeper Name Role Phone Rodrigo Boswell MD Primary Care Provider [phone] Provider, No Primary Primary Care Provider Unava Santiago Avelar MD Primary Care Provider Unavail able Christopher Drake MD Unavailable + Unknown, Provider Primary Care Provider Unavaila Jessica Clements MD Primary Care Provider Encounter Details Date Type Department Care Team (Late st Contact Info) Description 12/21/2015 Historical Conversion [facility] Family Medicine [address] [place] [address] [place] [address] [place] [phone] Social History Tobacco Use Types Packs/Day Years Used Date Smoking Tobacco: Never Assessed Sex and Gender Information Value Date Recorded Sex Assigned at Not on file Legal Sex Male 2:17 PM PAYROLL HUMAN RESOURCES ASSISTANT Gender Identity Not on file Sexual Orientation Not on file documented as of this encounter Plan of Treatment Upcoming Encounters Date Type Department Care Team (Late Contact Info) Description 06/02/2025 9:05 AM PAYROLL HUMAN RESOURCES ASSISTANT Lab [facility] Lab [address] [place] [address] Subj: Appointment Scheduled 06/04/2025 10:05 AM PAYROLL HUMAN RESOURCES ASSISTANT Office Visit [facility] Family Medicine [address] [place] [address] Jessica Huston MD [address] [facility] [place] [phone] Subj: Appointment Scheduled 06/10/2025 9:20 AM PAYROLL HUMAN RESOURCES ASSISTANT Office Visit [facility] Rheumatology (a service of [facility]) 1900 [place] [address] Theo Salinas MBBS 1900 [facility] [address] [place] [address], [place] [address] Victor Manuel Herrera DO [address] [place] [address] Subj: Appointment Scheduled documented as of this encounter Visit Diagnoses Not on filedocumented in this encounter Care Teams Head Bookkeeper Relationship Specialty Start Date End Date Rodrigo Boswell MD [address] [place] [phone] PCP - General Family Medicine 06/19/16 09/17/17 Provider, [place] [address] PCP - General 09/18/17 10/17/17 [place] [address] PCP - General Family Medicine 10/18/17 10/05/24 Unknown, [place] [address] PCP - General 10/06/24 11/30/24 Jessica Huston MD [address] [place] [phone] PCP - General Family Medicine 12/01/24 Christopher Drake MD [address] [phone] Gastroenterology 07/10/21 documented as of this encounter Additional Source Comments PLEASE NOTE: Replies to this message will not be received.[facility] and [facility]
--- OUTSIDE RECORDS SUMMARY | 2025-04-02 11:26 | XMS_ITS | Encounter Summary ---
Author Organization [facility] Address [address] [place] [address] Care Team Providers Care Processing Operator Name Role Phone Rodrigo Boswell MD Primary Care Provider Provider, No Primary Primary Care Provider Unava Santiago Avelar MD Primary Care Provider Unavail able Christopher Drake MD Unavailable + Unknown, Provider Primary Care Provider Unavaila Jessica Clements MD Primary Care Provider Encounter Details Date Type Department Care Team (Late st Contact Info) Description 05/19/2016 Historical Conversion [facility] Medicine [address] [place] [phone] Marge Bauer MD [address], [place] [phone] Social History Tobacco Use Types Packs/Day Years Used Date Smoking Tobacco: Never Assessed Sex and Gender Information Value Date Recorded Sex Assigned at Not on file Legal Sex Male 2:17 PM DIRECTOR OF GRADUATE ADMISSIONS Gender Identity Not on file Sexual Orientation Not on file documented as of this encounter Plan of Treatment Upcoming Encounters Date Type Department Care Team (Late st Contact Info) Description 06/02/2025 9:05 AM DIRECTOR OF GRADUATE ADMISSIONS Lab [facility] Lab [address] [place] [address] Subj: Appointment Scheduled 06/04/2025 10:05 AM DIRECTOR OF GRADUATE ADMISSIONS Office Visit [facility] Family Medicine [address] [place] [address] Jessica Huston MD [address] [place] [phone] Subj: Appointment Scheduled 06/10/2025 9:20 AM DIRECTOR OF GRADUATE ADMISSIONS Office Visit [facility] Rheumatology (a service of [facility]) [address] [place] [address] Theo [place]inas MBBS 1900 [facility] [address] [place] [address], [place] [phone] Victor Manuel Herrera DO [address] [place] [phone] Subj: Appointment Scheduled documented as of this encounter Visit Diagnoses Not on filedocumented in this encounter Care Teams Processing Operator Relationship Specialty Start Date End Date Rodrigo Boswell MD [address], [place] [phone] PCP - General Family Medicine 06/19/16 09/17/17 Provider, [place] [id number] PCP - General 09/18/17 10/17/17 [place] [id number] PCP - General Family Medicine 10/18/17 10/05/24 Unknown, [place] [address] PCP - General 10/06/24 11/30/24 Jessica Huston MD [address], [place] [phone] PCP - General Family Medicine 12/01/24 Christopher Drake MD [address] [phone] Gastroenterology 07/10/21 documented as of this encounter Additional Source Comments PLEASE NOTE: Replies to this message will not be received.[facility] and [facility]
--- OUTSIDE RECORDS SUMMARY | 2025-04-02 11:27 | XMS_ITS | Clinical Summary ---
Author Organization [facility] Address [address] [place] [address] Care Team Providers Care Finance And Administration Manager Name Role Phone Christopher Drake MD Unavailable + Jessica Huston MD Primary Care Provider [phone] Allergies No known active allergies Medications cholecalciferol [...] Date Resolved Date Cholecystitis, acute 03/03/2020 023 Encounters Date Type Department Care Team Description 03/16/2025 Refill [facility] Rheumatology (a service of [facility]) [address] [place] [address] Victor Manuel Herrera, Dx: Rheumatoid arthritis involving multiple sites with positive rheumatoid factor (HCC) (Primary Dx) 02/15/2025 Results Follow-Up [facility] Lab [address] [place] [address] Victor Manuel Herrera, CREATININE, LIVER FUNCTION PANEL, COMPLETE BLOOD COUNT AND DIFFERENTIAL 02/10/2025 9:35 AM CDT Lab [facility] [address] [address] Dx: Medication monitoring encounter 02/10/2025 Travel from Last 3 Months Immunizations Immunization Administration Dates Next Due Influenza [...] 05/23/2016, 05/19/2016,05/08/2008 Varicella Vaccine, IM (Shingrix) 07/19/2023,04/01 Family History Medical History Relation Name Comments No Known Problems Brother 1 Cancer (other) Brother 2 unsure origin Mental Health Brother 3 suicide No Known Problems Brother 4 Cancer (other) Father lung Heart Disease Father chf older age Stroke Mother possible bleedi ng issues Relation Name Status Comments Brother 1 Alive Brother 2 Brother 3 Brother 4 Alive Father Mother Social History Tobacco Use Types Packs/Day Years [...] from your doctor or pharmacy? Never 12/01/2024 [facility] Utilities Answer Date Recorded In the past 12 months has e electric, gas, oil, or water [employer] threatened to shut off services in your [...] How often do you attend chur or sabianist services? 1 to 4 times per year 12/01/2024 Do you belong to any clubs o r organizations such as alevism groups, unions, fraternal or athletic groups, or [...] and heating? Not hard at all 12/01/2024 [facility] - Occupational Stress Questionnaire Answer [...] any time in the past [address] [facility], were you homeless or living in a fpc (including now)? No 12/01/2024 Housing Stability Answer [...] any time in the past [address] [facility], were you homeless or living in a fpc (including now)? 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 on file Not on britany [...] Mass Index 29.83 12/01/2024 9:20 AM CDT Plan of Treatment Upcoming Encounters Date Type Department Care Team (Late st Contact Info) Description 06/02/2025 9:05 AM MEASUREMENT ANALYST Lab [facility] [address] [place] [address] Subj: Appointment Scheduled 06/04/2025 10:05 AM MEASUREMENT ANALYST Office Visit [facility] Family Medicine [address] [place] [address] Jessica Huston MD [address] [place] [phone] Subj: Appointment Scheduled 06/10/2025 9:20 AM MEASUREMENT ANALYST Office Visit [facility] Rheumatology (a service of [facility]) [address] [place], [place] [phone] Theo Salinas MBBS [address] [phone] Victor Manuel Herrera DO [address] [phone] Subj: Appointment Scheduled Health Maintenance Due Date Last Done Comments CT Colonography 1990 Fecal Immunochemical DNA Test (FIT-DNA) 1990 Fecal Immunochemical Test (FIT) 07/23/2015 07/23/2014 Plaquenil Eye Exam Yearly 10/14/20222021, 09/20/2020, 03/23/2020, Additional history exists COVID-19 Vaccine (8 - Pfizer risk season) 2025 04/09/2024, 05/01/2023, 05/23/2022, Additional history exists Influenza Vaccine (#1) 2025 , 06/05/2023, 05/04/2022, Additional history exists Depression Screening 12/01/2025 12/01/2024, 11/28/19 24 Medicare Annual Visit 12/01/2025 12/01/2024 , 11/28/2023, 11/23/2022, Additional history exists DTaP/Tdap/Td Vaccines (6 - Td or Tdap) 05/23/2026 05/23/2016, 05/19/2016, 05/19/2016, Additional history exists Colonoscopy 11/21/2026 11/21/2021, 12/2021, 08/27/2018, Additional history exists Colorectal Cancer Screening 11/21/2026 Lipids Standard 12/01/2029 12/01/2024, 10/31, 01/11/2022, Additional history exists Hepatitis C Testing Completed 07/18/2016 Pneumococcal Vaccine (50+ Years) Completed 08/30/2018, 04/08/2015, 12/08/2011, Additional history exists Varicella Zoster Sequential Completed 07/19/2023, 1 Respiratory Syncytial Virus (RSV) Vaccine Completed 05/22/2024 HIB Vaccines Aged Out No longer eligi ble based on patient's age to complete this topic HPV Vaccines (No Doses Required) Completed Hepatitis A Vaccines Aged Out No long er eligible based on patient's age to complete this topic Hepatitis B Vaccines Aged Out No long er eligible based on patient's age to complete this topic Meningococcal B Vaccines Aged Out No longer eligible based on patient's age to complete this topic Meningococcal Vaccines Aged Out No lo nger eligible based on patient's age to complete this topic Medical Devices Implanted Type Area Video And Sound Recorder Device Identifier Shelf Expiration Date Model / Serial / Lot Cement Tobramycin 6197-9-001 - [id number] Implanted:Qty: 2 on 12/07/2017 by Chang Elias MD at [facility] Cement Right: Knee [place] 01/29/2019 6197-9-010 / N/A / [id number] Triathlon Cr Femur Size 6 Rig - [id number] Implanted:Qty: 1 on 12/07/2017 by Chang Elias MD at [facility] Hardware Right: Knee [place] 08/15/2022 5510-F-602 / N/A / [id number] Insert Tibial X3 Triathlon Cr #6 9mm - [id number] Implanted:Qty: 1 on 12/07/2017 by Chang Elias MD at [facility] Hardware Right: Knee [place] 08/14/2022 5530-G-609 / N/A / [id number] Patella Triathlon Asymmetric X3 35x10 - [id number] Implanted:Qty: 1 on 12/07/2017 by Chang Elias MD at [facility] Hardware Right: Knee [place] 10/19/2022 5551-G-350 / N/A / [id number] Implant Ts Tria Baseplate Size - [id number] Implanted:Qty: 1 on 12/07/2017 by Chang Elias MD at [facility] Plate Right: Knee [place] 11/05/2022 5521-B-600 / [...] HEPATITIS C AB Routine 07/18/2016 11:00 AM MEASUREMENT ANALYST Rheumatoid arthritis involving multiple sites with positive rheumatoid factor (HCC) BLOOD, OCCULT, BY FECAL HEMOGLOBIN IMMUNOASSAY 07/23/2014 12:00 AM MEASUREMENT ANALYST from Last 3 Months or Most Recently Relevant to Health Maintenance Results * (ABNORMAL) COMPLETE BLOOD COUNT AND DIFFERENTIAL (02/10/2025 9:17 AM CDT) [facility] WBC Count, Corrected 6.1 3.9 - 11.9 10(3)/uL 02/10/2025 9:22 AM CDT [facility] RBC Count 4.84 4.08 - 5.79 10(6)/uL 02/10/2025 9:22 AM CDT [facility] Hemoglobin 14.7 13.1 - 17.1 g/dL 02/10/2025 9:22 AM CDT [facility] Hematocrit 44.6 38.7 - 51.4 % 02/10/2025 9:22 AM CDT [facility] MCV 92.2 82.9 - 100.6 fL 02/10/2025 9:22 AM CDT [facility] MCH 30.5 27.6 - 33.2 pg 02/10/2025 9:22 AM CDT [facility] MCHC 33.0 32.0 - 36.0 g/dL 02/10/2025 9:22 AM CDT [facility] RDW 15.2 10.0 - 16.2 % 02/10/2025 9:22 AM CDT [facility] Platelets 137(L) 179 - 450 10(3)/uL 02/10/2025 9:22 AM CDT [facility] MPV 8.0 7.4 - 10.4 fL 02/10/2025 9:22 AM CDT [facility] % Neutrophils 70.4 43.0 - 80.0 % 02/10/2025 9:22 AM CDT [facility] % Lymphocytes 17.8 16.0 - 49.0 % 02/10/2025 9:22 AM CDT [facility] % Monocytes 8.4 0.0 - 10.0 % 02/10/2025 9:22 AM CDT [facility] % Eosinophils 2.6 0.0 - 7.0 % 02/10/2025 9:22 AM CDT [facility] % Basophils 0.8 0.0 - 2.0 % 02/10/2025 9:22 AM CDT [facility] Abs Neutrophils 4.3 1.6 - 8.1 10(3)/uL 02/10/2025 9:22 AM CDT [facility] Abs Lymphocytes 1.1 0.9 - 3.5 10(3)/uL 02/10/2025 9:22 AM CDT [facility] Abs Monocytes 0.5 0.0 - 1.1 10(3)/uL 02/10/2025 9:22 AM CDT [facility] Abs Eosinophils 0.2 0.0 - 0.8 10(3)/uL 02/10/2025 9:22 AM CDT [facility] Abs Basophils 0.0 0.0 - 0.2 10(3)/uL 02/10/2025 9:22 AM T [facility] Blood VENOUS BLOOD / Unknown Venipuncture / Unknown 02/10/2025 9:17 AM CDT 02/10/2025 9:17 AM CDT us Victor Manuel Herrera DO LAB HEMATOLOGY ORDERABLE S Final Result [facility] [address] [place] [address], * CREATININE (02/10/2025 9:17 AM CDT) Creatinine 1.03 0.72 - 1.25 mg/dL 02/10/2025 11:55 AM [facility] eGFR >60 >=60 mL/min/1.7 3m(2) 02/10/2025 11:55 AM CDT [facility] Comment:Calculation based on the Chronic Kidney Disease Epidemiology Collaboration (CKD-EPI) equation refit without adjustment for race. eCrCl (Rx) - Adults 75.3 mL/min 02/10/2025 11:55 AM CDT [facility] Blood VENOUS BLOOD / Unknown Venipuncture / Unknown 02/10/2025 9:17 AM CDT 02/10/2025 9:17 AM CDT us Victor Manuel Herrera DO LAB CHEMISTRY ORDERABLES Final Result [facility] [address] [place] [address], [place] [phone] * LIVER FUNCTION PANEL (02/10/2025 9:17 AM CDT) Albumin 3.9 3.4 - 4.8 g/dL 02/10/2025 11:55 AM T [facility] Total Protein 6.5 6.0 - 8.0 g/dL 02/10/2025 11:55 AM T [facility] Globulin 2.6 2.0 - 3.5 g/dL 02/10/2025 11:55 AM [facility] Albumin/Globulin Ratio 1.5 1.0 - 2.0 02/10/2025 11:55 AM T [facility] Aspartate Aminotransferase (AST) 29 5 - 41 U/L 02/10/2025 11:55 AM T [facility] Alanine Aminotransferase (ALT) 23 8 - 45 U/L 02/10/2025 11:55 AM T [facility] Alkaline Phosphatase 61 50 - 136 U/L 02/10/2025 11:55 AM T [facility] Bilirubin, Total 0.4 0.2 - 1.2 mg/dL 02/10/2025 11:55 AM CDT [facility] Bilirubin, Indirect 0.2 0.0 - 0.7 mg/dL 02/10/2025 11:55 AM CDT [facility] Bilirubin, Direct 0.2 0.0 - 0.5 mg/dL 02/10/2025 11:55 AM CDT [facility] Blood VENOUS BLOOD / Unknown Venipuncture / Unknown 02/10/2025 9:17 AM CDT 02/10/2025 9:17 AM CDT us Victor Manuel Herrera DO LAB CHEMISTRY ORDERABLES Final Result [facility] [address] [place] [address], [place] [phone] * LIPID PANEL (12/01/2024 10:25 AM CDT) Cholesterol 171 <200 mg/dL 12/01/2024 12:25 PM CDT [facility] Comment: ATP III Guidelines(Cholesterol, Total) Optimal: <200 mg/dL Borderline High: 200-239 mg/dL High: >239 mg/dL Triglycerides 102 30 - 150 mg/dL 12/01/2024 12:25 PM CDT [facility] Cholesterol, LDL (Calculated) 101 0 - 159 mg/dL 12/01/2024 12:25 PM CDT [facility] Cholesterol, HDL 50 >40 mg/dL 12/02/19 25 12:25 PM CDT [facility] Cholesterol, vLDL 20 mg/dL 025 12:25 PM CDT [facility] Fasting Status N/A 12/01/2024 12:25 PM CDT [facility] Blood VENOUS BLOOD / Unknown Venipuncture / Unknown 12/01/2024 10:25 AM CDT 12/01/2024 10:25 AM CDT us Jessica Huston MD LAB CHEMISTRY ORDERABLES Fi nal Result [facility] [address] [place] [address], * COLONOSCOPY (11/21/2021 9:24 AM CDT) 11/21/2021 9:24 AM CDT Narrative [facility] - 11/21/2021 10:47 AM CDT [facility] Patient Name: Acosta Cruz Procedure Date: 11/21/2021 9:24 AM Date of : 1945 Admit Type: Outpatient Age: 75 Room: [facility] Gender: Male Note Status: Finalized Attending MD: [...] by the physician, the nurse and the cartographic technician. The procedure was verified in the procedure room. After I obtained informed consent, the scope was passed under direct vision. Throughout the procedure, the patient's blood pressure, pulse, and oxygen saturations were monitored continuously. The [id number] was introduced through the anus and advanced [...] Drake MD GI PROCEDURES Fi nal Result [facility] * HEPATITIS C ANTIBODY (07/18/2016 11:00 AM MEASUREMENT ANALYST) HEPATITIS C ANTIBODY NONREACTIVE NONR [facility] Comment: A NONREACTIVE RESULT INDICATES THE ABSENCE OF DETECTABLE LEVELS OF ANTIBODY TO HEPATITIS C VIRUS. AT PRESENT, THERE IS NO RECOGNIZED STANDARD FOR EVALUATING THE PRESENCE OR ABSENCE OF HEPATITIS C VIRUS ANTIBODIES INHUMAN BLOOD. THEREFORE, THIS RESULT DOES NOT PRECLUDE EXPOSURE TO OR INFECTION WITH HEPATITIS C VIRUS. Blood specimen (specimen) BLOOD SPECIMEN / Unknown 07/18/2016 11:00 AM MEASUREMENT ANALYST 07/18/2016 11:03 AM MEASUREMENT ANALYST us Victor Manuel Herrera DO LAB SEROLOGY ORDERABLES Final Result [facility] [address] [place] [address] * BLOOD, OCCULT, BY FECAL HEMOGLOBIN IMMUNOASSAY (07/23/2014 12:00 AM MEASUREMENT ANALYST) FECAL OCCULT BLOOD NEGATIVE Negative [facility] 07/23/2014 07/20/2014 4:5 7 PM MEASUREMENT ANALYST us Rodrigo Boswell MD LAB BODY FLUIDS AND STOOLS ORD ERABLES Final Result Performing Organization Address City/[facility]/ZIP Co de Phone Number [facility] [address] [place] [address], from Last 3 Months or Most Recently Relevant to Health Maintenance Insurance [employer] [id number] Advance Directives * Full Code (Latest Code Status on File) Date Activated Date Inactivated Comments 07/07/2021 4:58 AM 07/10/2021 2:54 PM * Full Code Date Activated Date Inactivated Comments 03/03/2020 5:53 AM 03/03/2020 10:14 PM Care Teams Finance And Administration Manager Relationship Specialty Start Date End Date Jessica Huston MD [address] [place] [phone] PCP - General Family Medicine 12/01/24 Christopher Drake MD [address] [facility] [address] [place] [phone] Gastroenterology 07/10/21 Additional Source Comments PLEASE NOTE: Replies to this message will not be received.[facility]
[2025-04-02 11:30] LABS: Chloride* 106 mmol/L (96-114); Potassium* 4.6 mmol/L (3.6-5.1); Sodium* 136 mmol/L (135-149)
[2025-04-02 11:33] LABS: Blood Urea Nitrogen* 26 mg/dL (7-30); Creatinine* 1.0 mg/dL (0.5-1.5); Est. Creatinine Clearance* 61.85; Estimated Glomerular Filt Rate 77 ml/min
[2025-04-02 11:34] LABS: Anion Gap 5 mEq/L (7-15); Calcium* 8.8 mg/dL (8.4-10.6); Carbon Dioxide* 25 mmol/L (20-32); Glucose* 130 mg/dL (60-115)
--- NOTE | 2025-04-02 12:04 | ED.GIBLEED ---
HPI - GI Bleed General Date Seen: 04/02/25 Chief complaint: GI Bleed Stated complaint: Rectal bleed Time Seen by Provider: 04/02/25 10:36 Source: patient Mode of arrival: ambulatory Limitations: no limitations History of Present Illness HPI Narrative: Patient is a 79-year-old male presenting to the emergency department for concerns of a GI bleed. States he was in town and notice when he had a bowel movement that he had some rectal bleeding. States he will have 1 episode but did have more draining onto his underwear. He feels like the bleeding has improved. Denies any abdominal pain, lightheadedness, dizziness, weakness, numbness, fevers, chills, diarrhea, constipation. States he had a GI bleed like this 5 years ago that resolved on its own. He had colonoscopy done at that time and they thought was likely a diverticular bleed. He states he was hospitalized for 4 days but was having no symptoms. Does state this was during COVID lock Downs. States his hemoglobin did drop but did not ever require a transfusion. No other concerns noted at this time. Related Data Home Medications ?Medication ?Instructions ?Recorded ?Confirmed lisinopril 2.5 mg tablet 2.5 mg PO DAILY 04/02/25 04/02/25 methotrexate 2.5 mg/mL oral 8 mg PO QWEEK 04/02/25 04/02/25 solution Allergies Allergy/AdvReac Type Severity Reaction Status Date / Time No Known Drug Allergies Allergy Verified 04/02/25 10:24 Review of Systems Status of ROS: Reports: 10 or more systems reviewed and unremarkable except as noted in History and below Exam Narrative: Exam Narrative: Const: Well-nourished, Well-developed, in no distress Eyes: PERRL, no conjunctival injection, and symmetrical lids HENT: Atraumatic external nose and ears. Moist mucous membranes. Neck: Symmetric, trachea midline, No thyromegaly. CVS: RRR, No murmurs or gallops. Peripheral pulses 2+ and equal in all extremities RESP: Unlabored respiratory effort. Clear to auscultation bilaterally. GI: Nontender/Nondistended, No rebound or guarding. MSK:Extremities w/o deformity, Normal Active ROM Skin: Warm, Dry. No rashes or lesions. Neuro: Normal Muscle tone, No focal neurological deficits. Psych: Awake, Alert, & Oriented x3. Appropriate mood and affect. Const: Vital Signs, click to edit/add: Vital Signs - 24 hr 04/02/25 10:19 04/02/25 11:34 04/02/25 11:35 Temperature 97.2 F L Pulse Rate 81 80 Pulse Rate [Right Pulse Oximeter] 90 Respiratory Rate 18 9 L 14 Blood Pressure 139/82 Blood Pressure [Ri ght Upper Arm] 148/82 H Pulse Oximetry 98 97 97 Oxygen Delivery Me thod Room Air 04/02/25 11:56 04/02/25 11:57 04/02/25 12:00 Temperature Pulse Rate 89 81 73 Pulse Rate [Right Pulse Oximeter] Respiratory Rate 34 H 10 L 9 L Blood Pressure 137/84 Blood Pressure [Ri ght Upper Arm] Pulse Oximetry 98 99 99 Oxygen Delivery Me thod 04/02/25 12:01 04/02/25 12:15 04/02/25 12:51 Temperature Pulse Rate 81 70 78 Pulse Rate [Right Pulse Oximeter] Respiratory Rate 9 L 12 8 L Blood Pressure 145/95 H Blood Pressure [Ri ght Upper Arm] Pulse Oximetry 99 98 100 Oxygen Delivery Me thod 04/02/25 13:00 04/02/25 13:01 04/02/25 13:02 Temperature Pulse Rate 79 73 72 Pulse Rate [Right Pulse Oximeter] Respiratory Rate 9 L 8 L 15 Blood Pressure 150/78 H Blood Pressure [Ri ght Upper Arm] Pulse Oximetry 99 100 99 Oxygen Delivery Me thod 04/02/25 13:15 04/02/25 13:30 04/02/25 13:32 Temperature Pulse Rate 73 85 70 Pulse Rate [Right Pulse Oximeter] Respiratory Rate 9 L 12 16 Blood Pressure 139/76 Blood Pressure [Ri ght Upper Arm] Pulse Oximetry 99 98 99 Oxygen Delivery Me thod Course Vital Signs Vital signs: Initial Vital Signs Temperature 97.2 F L 04/02/25 10:19 Temperature Source Temporal Artery Scan 04/02/25 10:19 Pulse Rate 90 04/02/25 10:19 Pulse Rhythm Regular 04/02/25 10:19 Pulse Strength 3+ Normal 04/02/25 10:19 Respiratory Rate 18 04/02/25 10:19 Blood Pressure 148/82 H 04/02/25 10:19 Blood Pressure Mean 104 04/02/25 10:19 Blood Pressure Position Sitting 04/02/25 10:19 Pulse Oximetry 98 04/02/25 10:19 Oxygen Delivery Method Room Air 04/02/25 10:19 Vital Signs Temperature 97.2 F L 04/02/25 10:19 Pulse Rate 90 04/02/25 10:19 Respiratory Rate 18 04/02/25 10:19 Blood Pressure 148/82 H 04/02/25 10:19 Pulse Oximetry 98 04/02/25 10:19 Oxygen Delivery Method Room Air 04/02/25 10:19 Temperature 97.2 F L 04/02/25 10:19 Pulse Rate 70 04/02/25 13:32 Respiratory Rate 16 04/02/25 13:32 Blood Pressure 139/76 04/02/25 13:32 Pulse Oximetry 99 04/02/25 13:32 Oxygen Delivery Method Room Air 04/02/25 10:19 MDM - GI Bleed MDM Narrative Medical decision making narrative: Patient is a 79-year-old male presenting to the emergency department for concern of a GI bleed. There is clearly blood around his rectum. Will do a BMP, CBC, magnesium, type and screen. Also CT scanned GI bleed protocol. Patient did give us a stool sample that was clearly bloody with clots. Lab work returned showing no acute concerning abnormalities. CTA return showing a small focus of active arterial bleeding from 1 of his diverticuli. I spoke to Dr. Call of General surgery at 12:21 and she recommends transfer for IR. Patient will be for transfer to [facility] but they are for right now. He is on the wait this. I spoke to Dr. Molina of [facility] and [facility] This was done approximately 13:10. Patient is agreeable to transfer. We will continue to monitor him transfer occurs. He continues to stay hemodynamically stable. Lab Data Labs: Lab Results 04/02/25 Range/Units 11:10 WBC 5.74 (4.50-11.00) K/uL RBC 4.73 (4.30-5.90) m/uL Hgb 14.5 (13.5-17.5) gm/dL Hct 43.6 (37.0-53.0) % MCV 92 (80-100) fL MCH 31 (26-34) pg MCHC 33 (32-36) gm/dL RDW Coeff of Mark 15.3 (11.5-15.5) % Plt Count 145 (140-440) K/uL Neut % (Auto) 73.1 H (42.0-72.0) % Lymph % (Auto) 17.4 L (20-44) % Dixon % (Auto) 7.1 (0.0-11.0) % Eos % (Auto) 1.7 (0.0-7.0) % Baso % (Auto) 0.5 (0.0-3.0) % Neut # (Auto) 4.20 (1.7-7.0) K/uL Lymph # (Auto) 1.00 (0.90-2.90) K/uL Dixon # (Auto) 0.40 (0.00-0.90) K/UL Eos # (Auto) 0.10 (0.00-0.50) K/uL Baso # (Auto) 0.03 (0.00-0.30) K/uL Abs Immat Gran (auto) 0.01 (0.00-0.30) K/uL Imm/Tot Granulo (auto) 0.2 % Sodium 136 (135-149) mmol/L Potassium 4.6 (3.6-5.1) mmol/L Chloride 106 (96-114) mmol/L Carbon Dioxide 25 (20-32) mmol/L Anion Gap 5 L (7-15) mEq/L BUN 26 (7-30) mg/dL Creatinine 1.0 (0.5-1.5) mg/dL Estimated Creat Clear 61.85 Estimated GFR 77 ml/min Glucose 130 H (60-115) mg/dL Calcium 8.8 (8.4-10.6) mg/dL Magnesium 1.9 (1.5-2.6) mg/dL Blood Type A Positive Antibody Screen NEGATIVE Imaging Data CTA abdomen pelvis GI bleed protocol: Attestation: I have reviewed the pertinent imaging results. Radiologist's impression: 1. Small focus of active arterial bleeding associated with a diverticulum in the proximal descending colon. 2. Additional incidental findings as detailed above. Findings were discussed with Dr. Coppola at approximately 12:22 p.m. on 04/02/2025. Please note that all CT scans at this facility use dose modulation, iterative reconstruction, and/or weight-based dosing when appropriate to reduce radiation dose to as low as reasonably achievable. Dictated by Imtiaz George MD @ 04/02/2025 12:24:15 PM Discharge Plan Discharge Clinical Impression: Lower gastrointestinal hemorrhage Patient Disposition: [facility] Condition: Stable Prescriptions: No Action methotrexate 2.5 mg/mL solution 8 mg PO QWEEK lisinopril 2.5 mg tablet 2.5 mg PO DAILY Stand Alone Forms: [facility] Info Instructions
--- NOTE | 2025-04-02 14:36 | PC.NURSE ---
Patient transferred to [facility] [id number]. Report given to cupola charger insulationEricka. All belongings sent with family. Report given to EMS. Requested records from [facility] and will fax to [facility] if received.
--- NOTE | 2025-04-02 14:45 | PC.NURSE ---
Faxed records from [facility] up to [place] station [id number].
== END 2025-04-02 14:30 | disposition short-term general hospital (02) ==
PROVIDERS: Emergency Provider Student in an Organized Health Care Education/Training Program
DX: K92.2 Gastrointestinal hemorrhage, unspecified (principal)
CPT/HCPCS: 36415; 74174; 80048; 83735; 85025; 86850; 86900; 86901; 99285; Q9967

== ENCOUNTER 2025-04-02 14:19 | Outpatient (CLI) | payer OTHER, SELFPAY | END 2025-04-02 14:20 | disposition home or self-care (01) | LOC: AMB 04-07 10:31 | PROVIDERS: Visit Provider Student in an Organized Health Care Education/Training Program | DX: K92.2 Gastrointestinal hemorrhage, unspecified (principal) | CPT/HCPCS: A0425; A0433 ==